=== PATIENT | male | born 1975 | race Caucasian/White ===

== ENCOUNTER 2018-06-22 00:12 | Emergency (ER) | payer OTHER ==
[2018-06-22 00:20] VITALS: BP 135/81; PULSE 93; RESP 18; TEMP 98.2
--- NOTE | 2018-06-22 00:35 | ED ---
Recheck HPI - General Chief Complaint: Recheck/Abnormal Lab/Rx Stated Complaint: infection Time Seen by Provider: 06/22/18 00:25 Source: patient Mode of arrival: ambulatory Limitations: no limitations - History of Present Illness Initial Comments: 42-year-old male past medical history of MRSA infection presenting today for chief complaint of nose redness. Patient states that he felt a pimple-like lesion inside of his nose near the tip 3 days ago. He states this happened following plucking with tweezers. Patient states that is tender to palpation. Patient states that the redness has spread from inside the nose to the outside, he was concerned for infection and presented for evaluation. Patient denies any fever, chills, night sweats, trauma to the nose. Patient denies general malaise. Remainder of ROS negative, patient denies any shortness of breath, chest pain, back pain, abdominal pain, nausea or vomiting, numbness or tingling , dysuria or hematuria, constipation or diarrhea, headaches or visual changes, or any other complaints. Upon arrival pt appears well, nontoxic. - Related Data Previous Rx's Medication Instructions Recorded Cephalexin [Keflex] 500 mg PO Q6HR #40 cap 01/09/14 Cephalexin [Keflex] 500 mg PO Q8HR 5 Days #15 cap 06/22/18 Sulfamethox-Tmp 800-160Mg [Bactrim 1 tab PO Q12HR 5 Days #10 tab 06/22/18 DS 800-160 mg] Allergies Allergy/AdvReac Type Severity Reaction Status Date / Time No Known Allergies Allergy Verified 06/22/18 00:20 Review of Systems ROS Statement: Those systems with pertinent positive or pertinent negative responses have been documented in the HPI. ROS Other: All systems not noted in ROS Statement are negative. Constitutional: Denies: fever, chills, night sweats ENT: Reports: as per HPI. Denies: ear pain, throat pain Respiratory: Denies: cough, dyspnea, wheezes, hemoptysis, stridor Cardiovascular: Denies: chest pain, palpitations Endocrine: Denies: fatigue Gastrointestinal: Denies: abdominal pain, nausea, vomiting, diarrhea, constipation Genitourinary: Denies: urgency, dysuria Musculoskeletal: Denies: back pain Skin: Denies: rash, lesions Neurological: Denies: headache, weakness, numbness, paresthesias, confusion Past Medical History Past Medical History: No Reported History Additional Past Medical History / Comment(s): high functioning autistic History of Any Multi-Drug Resistant Organisms: MRSA Date of last positivie culture/infection: 2006 MDRO Source:: nose Past Surgical History: No Surgical Hx Reported Past Psychological History: Anxiety, Depression, PTSD Smoking Status: Current every day smoker Past Alcohol Use History: Occasional Past Drug Use History: Marijuana General Exam - General Exam Comments Initial Comments: General: The patient is awake and alert, in no distress, and does not appear acutely ill. Eye: Pupils are equal, round and reactive to light, extra-ocular movements are intact. No nystagmus. There is normal conjunctiva bilaterally. No signs of icterus. Ears, nose, mouth and throat: There are moist mucous membranes and no oral lesions. Inspection of the nares revealed mild erythema, of the left internal tip. Small raised lesion internally palpated <1/2 cm. Mild soft tissue erythema of the nares. No facial erythema/swelling. Neck: The neck is supple, there is no tenderness or JVD. Cardiovascular: There is a regular rate and rhythm. No murmur, rub or gallop is appreciated. Respiratory: Lungs are clear to auscultation, respirations are non-labored, breath sounds are equal. No wheezes, stridor, rales, or rhonchi. Musculoskeletal: Normal ROM, no tenderness. Strength 5/5. Sensation intact. Pulses equal bilaterally 2+. Neurological: A&O x 3. CN II-XII intact, There are no obvious motor or sensory deficits. Coordination appears grossly intact. Speech is normal. Skin: Skin is warm and dry and no rashes or lesions are noted. Psychiatric: Cooperative, appropriate mood & affect, normal judgment. Limitations: no limitations Course Vital Signs 06/22/18 00:15 Temperature 98.2 F Pulse Rate 93 Respiratory 18 Rate Blood Pressure 135/81 O2 Sat by Pulse 96 Oximetry Medical Decision Making - Medical Decision Making 42yo immune competent male with no comorbidities, and hx of MRSA skin infection. PE concerning for folliculitis of nares (left) and beginning of surrounding cellulitis. Given the hx of MRSA, pt will be treated with keflex and bactrim. Pt is to f/u with primary in next 2 days. Pt is to return for worsening symptoms. No signs of systemic spread of infection at this time. Patient is agreeable plan. Case discussed with Dr. Mast who agreed with impression and plan. Pt discharged in stable condition after discussing return parameters at length. Patient verbalized understanding. Patient denied questions at this time. Patient appears happy with plan and discharge. Disposition Clinical Impression: Folliculitis Disposition: HOME SELF-CARE Condition: Good Instructions: Folliculitis (ED) Additional Instructions: Please use medication as discussed. Please follow-up with family doctor in the next 2 days. Please return to emergency room if the symptoms increase or worsen or for any other concerns. Prescriptions: Cephalexin [Keflex] 500 mg PO Q8HR 5 Days #15 cap Sulfamethox-Tmp 800-160Mg [Bactrim DS 800-160 mg] 1 tab PO Q12HR 5 Days #10 tab Is patient prescribed a controlled substance at d/c from ED?: No Referrals: Emmy Ghosh MD [Primary Care Provider] - 1-2 days Time of Disposition: 00:39
== END 2018-06-22 00:47 | disposition home or self-care (01) ==
LOC: EC 00:12
DX: L73.9 Follicular disorder, unspecified (principal); F84.0 Autistic disorder; F17.200 Nicotine dependence, unspecified, uncomplicated; Z86.14 Personal history of Methicillin resistant Staphylococcus aureus infection
CPT/HCPCS: 99282

== ENCOUNTER 2018-06-27 21:27 | Emergency (ER) | payer OTHER ==
[2018-06-27 21:38] VITALS: RESP 18
--- NOTE | 2018-06-27 22:14 | ED ---
General Adult HPI - General Chief complaint: Skin/Abscess/Foreign Body Stated complaint: RASH Time Seen by Provider: 06/27/18 21:41 Source: patient, RN notes reviewed Mode of arrival: ambulatory Limitations: no limitations - History of Present Illness Initial comments: Chief complaint and history of present illness a 42-year-old male here with a complaint of a rash on his penis. The patient states it happened approximately 3 days ago. He thinks he may have caused irritation from the ring on his right hand. He has no other explanation. On placing topical [id number] antibiotics on the area without improvement. - Related Data Previous Rx's Medication Instructions Recorded Cephalexin [Keflex] 500 mg PO Q6HR #40 cap 01/09/14 Cephalexin [Keflex] 500 mg PO Q8HR 5 Days #15 cap 06/22/18 Sulfamethox-Tmp 800-160Mg [Bactrim 1 tab PO Q12HR 5 Days #10 tab 06/22/18 DS 800-160 mg] Mupirocin 2% Oint [Bactroban 2% 1 applic TOPICAL TID #22 gm 06/27/18 Oint] Allergies Allergy/AdvReac Type Severity Reaction Status Date / Time No Known Allergies Allergy Verified 06/27/18 21:38 Review of Systems ROS Statement: Those systems with pertinent positive or pertinent negative responses have been documented in the HPI. Review of systems no other complaints at this time. Past medical problems negative. Surgeries none. Family history a grandmother and aunt was had breast cancer. The patient denies any ALLERGIES. Patient does smoke encouraged to stop his alcohol rarely socially. ROS Other: All systems not noted in ROS Statement are negative. Past Medical History Past Medical History: No Reported History Additional Past Medical History / Comment(s): high functioning autistic History of Any Multi-Drug Resistant Organisms: MRSA Date of last positivie culture/infection: 2006 MDRO Source:: nose Past Surgical History: No Surgical Hx Reported Past Psychological History: Anxiety, Depression, PTSD Smoking Status: Current every day smoker Past Alcohol Use History: Occasional Past Drug Use History: Marijuana General Exam - General Exam Comments Initial Comments: Physical examination; pertinent to the patient's visit eyes are PERRLA, throat is clear. No infection on his nose which she admits had had on previous visit. He is currently taking Keflex and sulfa medication. No chest pain shortness breath GI problems genitourinary problems as noted above examination of the penis finds patient circumcised. With excoriation to the glans penis. No typical rash such as herpetic lesion but rather it appears to have a chemical-type irritation. Patient denies any topical chemicals. The plan the patient will have Bactroban ointment prescribed which she is to use 3 times daily. If he does not have steady improvement is to follow-up with urology within the next 2-3 days. Limitations: no limitations Course Vital Signs 06/27/18 21:33 Temperature 98.5 F Pulse Rate 119 H Respiratory 18 Rate Blood Pressure 109/68 O2 Sat by Pulse 98 Oximetry Medical Decision Making - Medical Decision Making Medical decision making; patient presents with surface irritation to the glans penis. Patient thinks he may have inadvertently caused damage from his ring. On emergency room the patient had Bactroban prescribed. He was advised how to apply it, however often and what to do of the skin does not start to heal. Disposition Clinical Impression: Penis abrasion Disposition: HOME SELF-CARE Condition: Fair Instructions: Abrasion (ED) Additional Instructions: Clean as directed, apply Bactroban 3 times daily. If not steadily improving follow-up with your family doctor and/or on-call urologist. Prescriptions: Mupirocin 2% Oint [Bactroban 2% Oint] 1 applic TOPICAL TID #22 gm Is patient prescribed a controlled substance at d/c from ED?: No Referrals: Emmy Ghosh MD [Primary Care Provider] - 1-2 days Time of Disposition: 22:13
[2018-06-27] MEDS ORDERED: MUPIROCIN 2% OINT 22 GM TUBE TOPICAL SCH (22:15)
[2018-06-27 22:53] VITALS: BP 110/70; PULSE 95; TEMP 98.2
== END 2018-06-27 22:55 | disposition home or self-care (01) ==
LOC: EC 21:27 → EEVIPCON 21:27 → EC 22:55
DX: S30.812A Abrasion of penis, initial encounter (principal); F17.200 Nicotine dependence, unspecified, uncomplicated; Z86.14 Personal history of Methicillin resistant Staphylococcus aureus infection; X58.XXXA Exposure to other specified factors, initial encounter
CPT/HCPCS: 99282

== ENCOUNTER 2020-09-22 12:14 | Inpatient (IN) | payer MEDICAID, OTHER ==
--- NOTE | 2020-09-22 13:08 | ED ---
General Adult HPI - General Source: patient, police, RN notes reviewed, old records reviewed Mode of arrival: EMS Limitations: no limitations <Kayden Amaro - Last Filed: 09/22/20 13:52> <Kayden Merritt - Last Filed: 09/22/20 17:20> - General Chief complaint: Psychiatric Symptoms Stated complaint: Mental health Time Seen by Provider: 09/22/20 12:17 - History of Present Illness Initial comments: 45-year-old male presenting for psychiatric evaluation. Patient brought in by local [employer] under court order psychiatric evaluation. Patient has been paranoid. He himself has no complaints, no physical complaints, denies suicidal or homicidal ideation. Denies illicit drugs. Uncertain if this patient is cu rrently on medication or has previously had a diagnosis of mental illness. (Kayden Amaro) - Related Data Home Medications Medication Instructions Recorded Confirmed No Known Home Medications 09/22/20 09/22/20 Allergies Allergy/AdvReac Type Severity Reaction Status Date / Time No Known Allergies Allergy Verified 09/22/20 13:17 Review of Systems ROS Other: All systems not noted in ROS Statement are negative. <Kayden Amaro - Last Filed: 09/22/20 13:52> ROS Other: All systems not noted in ROS Statement are negative. <Kayden Merritt - Last Filed: 09/22/20 17:20> ROS Statement: Those systems with pertinent positive or pertinent negative responses have been documented in the HPI. Past Medical History Past Medical History: No Reported History Additional Past Medical History / Comment(s): high functioning autistic History of Any Multi-Drug Resistant Organisms: MRSA Date of last positivie culture/infection: 2006 MDRO Source:: nose Past Surgical History: No Surgical Hx Reported Past Psychological History: Anxiety, Depression, PTSD Smoking Status: Current every day smoker Past Alcohol Use History: Occasional Past Drug Use History: Marijuana <Kayden Amaro - Last Filed: 09/22/20 13:52> General Exam Limitations: no limitations General appearance: alert, in no apparent distress Head exam: Present: atraumatic, normocephalic Eye exam: Present: normal appearance, PERRL ENT exam: Present: normal exam Neck exam: Present: normal inspection. Absent: tenderness Respiratory exam: Present: normal lung sounds bilaterally, respiratory distress Cardiovascular Exam: Present: regular rate, normal rhythm GI/Abdominal exam: Present: soft. Absent: distended, tenderness, guarding Extremities exam: Present: normal inspection, normal capillary refill. Absent: pedal edema Back exam: Present: normal inspection, full ROM Neurological exam: Present: alert. Absent: motor sensory deficit Psychiatric exam: Present: agitated, anxious Skin exam: Present: warm, dry, intact <Kayden Amaro - Last Filed: 09/22/20 13:52> Course <Kayden Amaro - Last Filed: 09/22/20 13:52> <Kayden Merritt - Last Filed: 09/22/20 17:20> Vital Signs 09/22/20 12:19 Temperature 98.2 F Pulse Rate 102 H Respiratory 22 Rate Blood Pressure 143/100 O2 Sat by Pulse 98 Oximetry - Reevaluation(s) Reevaluation #1: 09/22/20 1500 Patient cleared for EPS evaluation, care is signed out to Dr. Merritt at shift change awaiting EPS disposition. (Kayden Amaro) Reevaluation #2: 09/22/20 17:19 Patient was demonstrating aggressive behavior and did require sedation. (Kayden Merritt) Medical Decision Making <Kayden Merritt - Last Filed: 09/22/20 17:20> - Medical Decision Making The patient was endorsed me at shift change pending completion of the EPS evaluation. Patient did present on petition for paranoid and delusional behavior he apparently has been using the Internet for Cipro Prolene in her aspirin today. Patient did require a clinical certification was filled out by me. (Kayden Merritt) - Lab Data Lab Results 09/22/20 Range/Units 14:08 Urine Opiates Screen Not Detected (NotDetected) Ur Oxycodone Screen Not Detected (NotDetected) Urine Methadone Screen Not Detected (NotDetected) Ur Propoxyphene Screen Not Detected (NotDetected) Ur Barbiturates Screen Not Detected (NotDetected) U Tricyclic Antidepress Not Detected (NotDetected) Ur Phencyclidine Scrn Not Detected (NotDetected) Ur Amphetamines Screen Not Detected (NotDetected) U Methamphetamines Scrn Not Detected (NotDetected) U Benzodiazepines Scrn Not Detected (NotDetected) Urine Cocaine Screen Not Detected (NotDetected) U Marijuana (THC) Screen Detected H (NotDetected) Disposition <Kayden Amaro - Last Filed: 09/22/20 13:52> <Kayden Merritt - Last Filed: 09/22/20 17:20> Clinical Impression: Acute psychosis Disposition: TRANSFER TO PSYCH HOSP/UNIT Condition: Fair Referrals: Emmy Ghosh MD [Primary Care Provider] - 1-2 days
[2020-09-22 15:15] LABS: Amphetamine Screen,Urine Not Detected (NotDetected); Barbiturate Screen,Urine Not Detected (NotDetected); Benzodiazepines Screen,Urine Not Detected (NotDetected); Cocaine Screen,Urine Not Detected (NotDetected); Methadone Screen, Urine Not Detected (NotDetected); Opiate Screen,Urine Not Detected (NotDetected); Oxycodone Screen, Urine Not Detected (NotDetected); Phencyclidine Screen,Urine Not Detected (NotDetected); Tricyclic Antidepressant,Urine Not Detected (NotDetected); Urn Cannabinoid Scrn Detected (NotDetected)
[2020-09-22] MEDS ORDERED: HALOPERIDOL LACTATE 5 MG/ML 1 ML VIAL IM STA (16:38)
[2020-09-22] MEDS ORDERED: LORazepam 2 MG/ML INJ IM STA (16:38)
[2020-09-22] MEDS ORDERED: MAGNESIUM HYDROXIDE 2,400 MG/10 ML CUP PO PRN (19:20)
[2020-09-22] MEDS ORDERED: MAG HYDROX/AL HYDROX/SIMETH 30 ML CUP PO PRN (19:20)
[2020-09-22] MEDS ORDERED: ACETAMINOPHEN TAB 325 MG TAB PO PRN (19:20)
[2020-09-22] MEDS ORDERED: LORazepam 2 MG/ML INJ IM PRN (19:27)
[2020-09-22] MEDS ORDERED: HALOPERIDOL LACTATE 5 MG/ML 1 ML VIAL IM PRN (19:28)
[2020-09-22] MEDS: chlorproMAZINE 25 MG TAB PO SCH (22:10)
[2020-09-23] MEDS: chlorproMAZINE 25 MG TAB PO SCH ×4 (08:31→21:30)
[2020-09-23] MEDS: NICOTINE POLACRILEX 2 MG GUM BUCCAL PRN (08:35)
[2020-09-23 10:03] LABS: Basophils # (A) 0.1 k/uL (0-0.2); Basophils % (A) 1 %; Eosinophils # (A) 0.2 k/uL (0-0.7); Eosinophils % (A) 3 %; HCT 43.1 % (39.0-53.0); HGB 14.1 gm/dL (13.0-17.5); Lymphocytes # (A) 3.6 k/uL (1.0-4.8); Lymphocytes % (A) 42 %; MCH 30.6 pg (25.0-35.0); MCHC 32.9 g/dL (31.0-37.0); MCV 93.1 fL (80.0-100.0); Mean Platelet Volume 6.6; Monocytes # (A) 0.4 k/uL (0-1.0); Monocytes % (A) 5 %; Neutrophils # (A) 4.2 k/uL (1.3-7.7); Neutrophils % (A) 49 %; Platelet Count 536 k/uL (150-450); RBC 4.62 m/uL (4.30-5.90); RDW 13.1 % (11.5-15.5); WBC 8.6 k/uL (3.8-10.6)
[2020-09-23 10:30] LABS: ALT 16 U/L (4-49); AST 34 U/L (17-59); African American GFR (CKD) >90 (>60 ml/min/1.73 sqM); Albumin 4.6 g/dL (3.5-5.0); Alkaline Phosphatase 69 U/L (38-126); Anion Gap 9 mmol/L; Blood Urea Nitrogen 11 mg/dL (9-20); Calcium 10.1 mg/dL (8.4-10.2); Carbon Dioxide 25 mmol/L (22-30); Chloride 105 mmol/L (98-107); Cholesterol 267 mg/dL (<200); Glucose 102 mg/dL (74-99); HDL Cholesterol 38 mg/dL (40-60); LDL Cholesterol,Calculated 193 mg/dL (0-99); Non-African American GFR(CKD) >90 (>60 ml/min/1.73 sqM); Potassium 4.8 mmol/L (3.5-5.1); Sodium 139 mmol/L (137-145); Total Bilirubin 0.4 mg/dL (0.2-1.3); Total Protein 7.4 g/dL (6.3-8.2); Triglycerides 180 mg/dL (<150)
[2020-09-23] MEDS: LORazepam 1 MG TAB PO PRN ×2 (12:43→18:58)
--- NOTE | 2020-09-23 15:02 | P.HP ---
Psychiatric H&P - . H&P Date: 09/23/20 History & Physical: Allergies Allergy/AdvReac Type Severity Reaction Status Date / Time No Known Allergies Allergy Verified 09/22/20 13:17 Vital Signs Temp 97.7 F 09/23/20 06:05 Pulse 61 09/23/20 06:05 Resp 18 09/22/20 20:08 BP 111/58 09/23/20 06:05 Pulse Ox 98 09/22/20 19:13 Intake & Output 09/22/20 09/23/20 09/23/20 18:59 06:59 18:59 Weight 70.307 kg 77 kg Laboratory Last Values WBC 8.6 k/uL (3.8-10.6) 09/23/20 09:43 RBC 4.62 m/uL (4.30-5.90) 09/23/20 09:43 Hgb 14.1 gm/dL (13.0-17.5) 09/23/20 09:43 Hct 43.1 % (39.0-53.0) 09/23/20 09:43 MCV 93.1 fL (80.0-100.0) 09/23/20 09:43 MCH 30.6 pg (25.0-35.0) 09/23/20 09:43 MCHC 32.9 g/dL (31.0-37.0) 09/23/20 09:43 RDW 13.1 % (11.5-15.5) 09/23/20 09:43 Plt Count 536 k/uL (150-450) H 09/23/20 09:43 MPV 6.6 09/23/20 09:43 Neutrophils % 49 % 09/23/20 09:43 Lymphocytes % 42 % 09/23/20 09:43 Monocytes % 5 % 09/23/20 09:43 Eosinophils % 3 % 09/23/20 09:43 Basophils % 1 % 09/23/20 09:43 Neutrophils # 4.2 k/uL (1.3-7.7) 09/23/20 09:43 Lymphocytes # 3.6 k/uL (1.0-4.8) 09/23/20 09:43 Monocytes # 0.4 k/uL (0-1.0) 09/23/20 09:43 Eosinophils # 0.2 k/uL (0-0.7) 09/23/20 09:43 Basophils # 0.1 k/uL (0-0.2) 09/23/20 09:43 Sodium 139 mmol/L (137-145) 09/23/20 09:43 Potassium 4.8 mmol/L (3.5-5.1) 09/23/20 09:43 Chloride 105 mmol/L (98-107) 09/23/20 09:43 Carbon Dioxide 25 mmol/L (22-30) 09/23/20 09:43 Anion Gap 9 mmol/L 09/23/20 09:43 BUN 11 mg/dL (9-20) 09/23/20 09:43 Creatinine 0.83 mg/dL (0.66-1.25) 09/23/20 09:43 Est GFR (CKD-EPI)AfAm >90 (>60 ml/min/1.73 sqM) 09/23/20 09:43 Est GFR (CKD-EPI)NonAf >90 (>60 ml/min/1.73 sqM) 09/23/20 09:43 Glucose 102 mg/dL (74-99) H 09/23/20 09:43 Calcium 10.1 mg/dL (8.4-10.2) 09/23/20 09:43 Total Bilirubin 0.4 mg/dL (0.2-1.3) 09/23/20 09:43 AST 34 U/L (17-59) 09/23/20 09:43 ALT 16 U/L (4-49) 09/23/20 09:43 Alkaline Phosphatase 69 U/L (38-126) 09/23/20 09:43 Total Protein 7.4 g/dL (6.3-8.2) 09/23/20 09:43 Albumin 4.6 g/dL (3.5-5.0) 09/23/20 09:43 Triglycerides 180 mg/dL (<150) H 09/23/20 09:43 Cholesterol 267 mg/dL (<200) H 09/23/20 09:43 LDL Cholesterol, Calc 193 mg/dL (0-99) H 09/23/20 09:43 HDL Cholesterol 38 mg/dL (40-60) L 09/23/20 09:43 TSH 2.600 mIU/L (0.465-4.680) 09/23/20 09:43 Urine Opiates Screen Not Detected (NotDetected) 09/22/20 14:08 Ur Oxycodone Screen Not Detected (NotDetected) 09/22/20 14:08 Urine Methadone Screen Not Detected (NotDetected) 09/22/20 14:08 Ur Propoxyphene Screen Not Detected (NotDetected) 09/22/20 14:08 Ur Barbiturates Screen Not Detected (NotDetected) 09/22/20 14:08 U Tricyclic Antidepress Not Detected (NotDetected) 09/22/20 14:08 Ur Phencyclidine Scrn Not Detected (NotDetected) 09/22/20 14:08 Ur Amphetamines Screen Not Detected (NotDetected) 09/22/20 14:08 U Methamphetamines Scrn Not Detected (NotDetected) 09/22/20 14:08 U Benzodiazepines Scrn Not Detected (NotDetected) 09/22/20 14:08 Urine Cocaine Screen Not Detected (NotDetected) 09/22/20 14:08 U Marijuana (THC) Screen Detected (NotDetected) H 09/22/20 14:08 Coronavirus (PCR) Not Detected (Not Detectd) 09/22/20 18:33 09/23/20 14:45 Chief complaint: Patient stated he has autistic and was sleeping yesterday when police and public guardian came and woke him up and he was brought to the emergency room. History of present illness: Patient stated that he goes through his meltdowns just like any other person with autism . He stated when he has a meltdown he gets upset, starts pacing, and keeps going on and on about the subject and does not listen to others. He stated when he has a meltdown and if he is confronted by somebody it makes him worse. He stated that his mother was at home and he has a awakened by police officers and was brought to the emergency room. Past history: he stated he was never in the hospital but when he was 16 years old he was admitted to [facility] one time. Family history he stated he has mother, father and 2 of his brothers. He denies any history of mental illness, suicidal ideation or homicidal ideation or history of psychiatric hospitalizations in the family. Medical history: He denies any medical problems and denies being on any other medications. Social history he stated he grew up with his mother and father. He finished high school. He stated he has some college education. 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 He stated he cannot hold a steady job because of his autism. Medication history: he stated he takes PRN Ativan, Xanax when his anxiety becomes real bad. He stated his mother also has anxiety and takes medication on a regular basis. Substance abuse history: he denied any history of alcohol and drugs are any other substance abuse at all. Legal history: he denied having any legal problems. The mother is not his legal guardian. ALLERGIES: he denies any ALLERGIES or any adverse drug reactions. Mental status examination: This patient is alert and oriented to time place and person. His appearance is a not neat and he is disheveled. His behavior is cooperative. When asked to describe his mood he stated he feels confused and little upset. His affect is blank. He denied having any hallucinations or delusions at this time. He does not have any loose associations or flight of high ideas or any other disorder of thought process. He was able to do similarities and differences between common objects. His formal judgment is a fair marked functional judgment is poor. His impulse control is poor and he is quite unpredictable. He was not able to interpret any proverbs. His memory functions are intact. 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
[2020-09-23] MEDS: ATORVASTATIN 40 MG TAB PO SCH (21:30)
--- NOTE | 2020-09-23 23:33 | P.MDCNMH ---
History of Present Illness H&P Date: 09/23/20 Chief Complaint: Paranoid ideation Patient is a 45-year-old male with a known history of high functioning autism, anxiety/depression, PTSD and everyday smoker and occasional marijuana use was brought to hospital by a local whistle punk under court order for psychiatric evaluation. Patient has been paranoid and compliant that someone is cyber bullying him. Patient states that police misunderstood him and thinks that he himself was cyber bullied. Otherwise patient denied any complaints of chest pain or shortness of breath. No fever no chills. Denied any recent illnesses. No suicidal or homicidal ideation. Denied any IV drug use. Patient does use marijuana occasionally. Patient is currently not on any medications at home. Laboratory data showed BUN 11, creatinine 0.83, AST 34 ALT 16 and alk phos 69 triglycerides 180 cholesterol 267 and LDL 193 and TSH level is 2.6 UDS is positive for marijuana COVID-19 PCR is negative. Review of Systems Constitutional: Patient denies any fever or chills . No generalized weakness or weight loss. Abdomen: Patient denied nausea vomiting and diarrhea and abdominal pain. Cardiovascular: Patient denies any chest pain or short of breath no palpitations. Respiratory: patient denied any cough or sputum production. No shortness of breath Neurologic: Patient denied any numbness or tingling headache. Musculoskeletal: Patient denies any complaints of joint swelling or deformity. Skin: Negative Psychiatric: Negative Endocrine: No heat or cold intolerance. No recent weight gain. Genitourinary: No dysuria or hematuria. All other 14 point ROS negative except the above Past Medical History Past Medical History: No Reported History Additional Past Medical History / Comment(s): high functioning autistic History of Any Multi-Drug Resistant Organisms: MRSA Date of last positivie culture/infection: 2006 MDRO Source:: nose Past Surgical History: No Surgical Hx Reported Past Anesthesia/Blood Transfusion Reactions: No Reported Reaction Past Psychological History: Anxiety, Depression, PTSD Smoking Status: Current every day smoker Past Alcohol Use History: None Reported, Occasional Past Drug Use History: Marijuana Medications and Allergies Home Medications Medication Instructions Recorded Confirmed Type No Known Home Medications 09/22/20 09/22/20 History Allergies Allergy/AdvReac Type Severity Reaction Status Date / Time No Known Allergies Allergy Verified 09/22/20 13:17 Physical Exam Vitals: Vital Signs Temp Pulse Pulse Resp BP BP Pulse Ox 09/23/20 06:05 97.7 F 61 111/58 09/22/20 20:08 88 18 113/73 09/22/20 19:13 98.2 F 77 20 116/60 98 09/22/20 18:30 105 H 20 165/90 99 09/22/20 17:22 98.1 F 118 H 20 166/107 95 09/22/20 12:19 98.2 F 102 H 22 143/100 98 Intake and Output 09/22/20 09/23/20 09/23/20 22:59 06:59 14:59 Other: Weight 77 kg PHYSICAL EXAMINATION: Patient is lying in the bed comfortably, no acute distress, awake alert and oriented.. HEENT: Normocephalic. Neck is supple. Pupils reactive. Nostrils clear. Oral cavity is moist. Ears reveal no drainage. Neck reveals no JVD, carotid bruits, or thyromegaly. CHEST EXAMINATION: Trachea is central. Symmetrical expansion. Lung dhaliwal clear to auscultation and percussion. CARDIAC: Normal S1, S2 with no gallops. No murmurs ABDOMEN: Soft. Bowel sounds normal. No organomegaly. No abdominal bruits. Extremities: reveal no edema. No clubbing or cyanosis Neurologically awake, alert, oriented x3 with well-coordinated movements. No focal deficits noted Skin: No rash or skin lesions. Psychiatric: Coperative. Nonsuicidal Musculoskeletal: No joint swelling or deformity. Normal range of motion. Cranial Nerve Examination - Cranial Nerves Cranial Nerve I- Olfactory: Intact Cranial Nerve II- Optic: Intact Cranial Nerve III- Oculomotor: Intact Cranial Nerve IV- Trochlear: Intact Cranial Nerve V- Trigeminal: Intact Cranial Nerve - Abducens: Intact Cranial Nerve VII- Facial: Intact Cranial Nerve VIII- Auditory: Intact Cranial Nerve IX- Glossopharyngeal: Intact Cranial Nerve X- Vagus: Intact Cranial Nerve XI- Accessory: Intact Cranial Nerve XII- Hypoglossal: Intact Results CBC & Chem 7: 09/23/20 09:43 09/23/20 09:43 Labs: Abnormal Lab Results - Last 24 Hours (Table) 09/22/20 09/23/20 09/23/20 Range/Units 14:08 09:43 09:43 Plt Count 536 H (150-450) k/uL Glucose 102 H (74-99) mg/dL Triglycerides 180 H (<150) mg/dL Cholesterol 267 H (<200) mg/dL LDL Cholesterol, Calc 193 H (0-99) mg/dL HDL Cholesterol 38 L (40-60) mg/dL U Marijuana (THC) Screen Detected H (NotDetected) Assessment and Plan Assessment: Acute paranoid ideation/schizo failure. Hyperlipidemia UDS is positive for marijuana use Currently everyday smoker Anxiety/depression and PTSD history High functioning autism history DVT prophylaxis with early ambulation Plan: Patient be continued on current psychiatric medications. will start on atorvastatin due to hyperlipidemia. Liver enzymes are not elevated at this time. We will continue to follow and further recommendations based on the clinical c ourse. Patient was counseled extensively for smoking cessation and marijuana use.
[2020-09-24] MEDS: chlorproMAZINE 25 MG TAB PO SCH ×4 (08:57→23:36)
[2020-09-24] MEDS: NICOTINE POLACRILEX 2 MG GUM BUCCAL PRN (09:11)
--- NOTE | 2020-09-24 13:14 | P.PN ---
Progress Note - Text Progress Note Date: 09/24/20 This patient has a history of autism and has a very limited comprehension. He stated that he had one of his meltdowns. He stated when he has a meltdown he gets upset, starts pacing, and keeps going on and on about the subject and does not listen to others. He stated when he has a meltdown and if he is confronted by somebody it makes him worse. He stated that his mother was at home and he has a awakened by police officers and was brought to the emergency room. He did not sign himself in voluntarily. He was very angry with me today about the clinical certification that I completed on him. I tried to help him again about the involuntary process on admission to hospital. He will continue to be encouraged to participate in unit activities.
[2020-09-24] MEDS: ATORVASTATIN 40 MG TAB PO SCH (20:50)
[2020-09-25] MEDS: LORazepam 1 MG TAB PO PRN (00:36)
[2020-09-25] MEDS: chlorproMAZINE 25 MG TAB PO SCH (08:01)
[2020-09-25] MEDS: NICOTINE POLACRILEX 2 MG GUM BUCCAL PRN (12:16)
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
[2020-09-25] MEDS: ATORVASTATIN 40 MG TAB PO SCH (20:00)
[2020-09-25] MEDS ORDERED: PALIPERIDONE 3 MG TAB.ER.24 PO SCH (21:00)
[2020-09-26] MEDS: LORazepam 1 MG TAB PO PRN (01:16)
--- NOTE | 2020-09-26 10:13 | P.PN ---
Progress Note - Text Progress Note Date: 09/26/20 Interval History: Patient was seen wandering the hallways and was directable and agreeable to speak with rewriter in the office. The patient reports that he is feeling well today. The patient states that he deferred today. He is not reporting any suicidal or homicidal ideation, intention, and/or plan today. He is not reporting any auditory or visual hallucinations. Denying any paranoia or other delusions. He reports that the only delusion that he is being accused of is his desire to change his name. He continues to report that people have been slandering him on Facebook and collateral information provided by the patient's mother further supports this history. He is been adherent with his medications and is not reporting any significant side effects at this time. He is open to following up in the outpatient setting. Mental Status Exam: General Appearance: Patient appears to be stated age is alert, directable, and cooperative. Poor dentition. Tall and thin build. Behavior: Patient is calmly seated without any agitated behavior. Psychomotor activity appears normal. Eye contact is appropriate. Speech: Patient's speech is fluent and nonpressured. Soft spoken but spontaneous. Mood/Affect: Mood is improving mildly, affect is congruent and constricted. Suicidality/Homicidality: Patient denies having any suicidal or homicidal ideation intent or plan. Perceptions: Patient denies any visual hallucinations and denies any auditory hallucinations Though content/process: There is no evidence of any delusional thought content and thought process is linear and goal-directed. Memory and concentration: AOX3, grossly intact for the purposes of this session Judgment and insight: Improving mildly Assessment Psychosis, unspecified Cannabis Use Disorder Plan: -Patient continues to meet criteria for inpatient psychiatric admission for symptom stabilization and safety. Petition and clinical certificate has been filled out. Patient deferred today. -Medications: Increase Invega to 6 mg at bedtime for mood stabilization/psychosis. -When necessary Ativan and Geodon for agitation/aggression. -NRT - nicotine patch and Nicorette gum -SW on board for discharge planning. Encouraged the patient to participate in milieu.
[2020-09-26] MEDS: ATORVASTATIN 40 MG TAB PO SCH (20:50)
[2020-09-26] MEDS ORDERED: PALIPERIDONE 6 MG TAB.ER.24 PO SCH (21:00)
[2020-09-27 06:43] VITALS: BP 108/57; PULSE 64; RESP 16; TEMP 97.3
--- NOTE | 2020-09-27 09:33 | P.DS ---
Providers Date of admission: 09/22/20 19:15 Expected date of discharge: 09/27/20 Attending physician: René Rodas MD Consults: 09/22/20 19:20 Consult Physician Routine Consulting Provider: Ifeanyi Arzola Consult Reason/Comments: medical management Do you want consulting provider notified?: Yes Primary care physician: Augie Finn Charbal - Discharge Diagnosis(es) (1) Unspecified psychosis Current Visit: Yes Status: Acute Priority: High (2) Cannabis abuse Current Visit: Yes Status: Chronic Priority: Medium (3) Nicotine dependence Current Visit: Yes Status: Chronic Priority: Medium Hospital Course: Admission HPI: Initial psychiatric evaluation was completed by Dr. Tran on 09/23/2020 who wrote: "Patient stated he has autistic and was sleeping yesterday when police and public guardian came and woke him up and he was brought to the emergency room. Patient stated that he goes through his meltdowns just like any other person with autism . He stated when he has a meltdown he gets upset, starts pacing, and keeps going on and on about the subject and does not listen to others. He stated when he has a meltdown and if he is confronted by somebody it makes him worse. He stated that his mother was at home and he has a awakened by police o fficers and was brought to the emergency room." Hospital course: Upon admission to the unit patient was initially presented as disheveled but otherwise cooperative, well behaved, albeit with a blank affect. Second clinical certificate was filled out by Dr. Tran and the patient was very upset at this. He was started on a regimen of Thorazine 50 mg by mouth 4 times a day. Upon reevaluation the following Friday, the patient was calm and cooperative and not endorsing any significant symptoms of psychosis. Thorazine was discontinued and the patient was started on a regimen of Invega. The patient participated in both individual and group therapies. He is evaluated by the medical team for history and physical exam. Collateral information was provided by the patient's mother who confirmed that the patient has been subject to harassment over Facebook due to his history of incarceration and his registration as a sex offender. The patient has been calm and cooperative with staff and peers on this unit. He has been adherent with his medications. On the day of discharge, the patient is not reporting any suicidal or homicidal ideation, intention, and/or plan. He is not reporting any auditory or visual hallucinations. He is denying any paranoia or other delusions. He denies any thought insertion, projection, thought deletion, delusions and surveillance, per secutory delusions, or other delusions. The patient does have a significant history of substance abuse however was counseled on abstaining from all substances including alcohol and marijuana. The patient denied any access to firearms or other weapons. Patient was counseled on the medications and need for regular compliance was encouraged to follow-up with his outpatient appointments for mental health and for primary care. Prior to discharge, family meeting will be arranged by social media analyst to answer any questions and ensure safety. Mental status exam: General Appearance: Patient appears to be stated age is alert, pleasant, and cooperative. Patient is in no acute distress and has fair hygiene and grooming. Poor dentition. Tall and thin build. Behavior: Patient is calmly seated without any agitated behavior. Normal psychomotor activity. Eye contact is appropriate. Speech: Patient's speech is fluent and nonpressured. Mood/Affect: Patient reports their mood is "feeling fine", affect is congruent and euthymic. Suicidality/Homicidality: Patient denies having any suicidal or homicidal ideation intent or plan. Perceptions: Patient denies any auditory or visual hallucinations. Though content/process: There is no evidence of any delusional thought content and thought process is linear and goal-directed. Patient is future oriented. Memory and concentration: AOX3, grossly intact for the purposes of this session. Can spell "WORLD" backwards correctly. Judgment and insight: Improved with guarded prognosis Impression: Unspecified psychosis Cannabis abuse Nicotine dependence Plan: -Continue with discharge today as patient has improved and stabilized psychiatrically and is not currently an imminent threat to himself and/or others. Patient will remain at chronically elevated risk for harm to self and/or others due to his polysubstance abuse. -Continue medications: Invega 6 mg by mouth at bedtime for mood stabilization/psychosis Nicorette gum for tobacco cessation. -Patient was counseled on the need for medication compliance and appropriate follow-up at mental health and also primary care for medical issues. Patient verbalized understanding and agreed. -Social work to arrange for and conduct family meeting to ensure safety upon discharge and answer any questions/concerns. Social work also to arrange for patients follow up appointments with [facility] for psychiatric care along with follow up with primary care provider. -Patient counseled on abstaining from recreational drugs and marijuana and alcohol. Was informed/educated on the adverse effects on their physical and mental health. Patient verbally agreed and understood. -Patient was instructed to return to the hospital or seek immediate medical care if their psychiatric or medical symptoms do worsen or reoccur. -Psychoeducation and supportive therapy provided to patient. Risks and benefits of pharmacological treatment versus the risks and benefits of nontreatment weight and discussed. Informed consent discussion held. Common side effects of psychotropics discussed such as, but not limited to headache, GI disturbance, sexual dysfunction, movement disorders, sedation, and orthostatic hypotension. Life threatening and blackbox warnings of prescribed medications also discussed. Potential risks of operating a vehicle or heavy machinery discussed with patient at length. Advised on importance of compliance and a reliable and responsible manner. Patient advised to review FDA consumer labeling of all medications prior to taking. Patient verbalized understanding of potential risks, and agrees with current treatment plan. Patient advised to medically contact physician/emergency personnel if any acute changes in condition occur. Vital Signs Temp 97.3 F L 09/27/20 06:25 Pulse 64 09/27/20 06:25 Resp 16 09/27/20 06:25 BP 108/57 09/27/20 06:25 Pulse Ox 98 09/22/20 19:13 Laboratory Results WBC 8.6 k/uL (3.8-10.6) 09/23/20 09:43 RBC 4.62 m/uL (4.30-5.90) 09/23/20 09:43 Hgb 14.1 gm/dL (13.0-17.5) 09/23/20 09:43 Hct 43.1 % (39.0-53.0) 09/23/20 09:43 MCV 93.1 fL (80.0-100.0) 09/23/20 09:43 MCH 30.6 pg (25.0-35.0) 09/23/20 09:43 MCHC 32.9 g/dL (31.0-37.0) 09/23/20 09:43 RDW 13.1 % (11.5-15.5) 09/23/20 09:43 Plt Count 536 k/uL (150-450) H 09/23/20 09:43 MPV 6.6 09/23/20 09:43 Neutrophils % 49 % 09/23/20 09:43 Lymphocytes % 42 % 09/23/20 09:43 Monocytes % 5 % 09/23/20 09:43 Eosinophils % 3 % 09/23/20 09:43 Basophils % 1 % 09/23/20 09:43 Neutrophils # 4.2 k/uL (1.3-7.7) 09/23/20 09:43 Lymphocytes # 3.6 k/uL (1.0-4.8) 09/23/20 09:43 Monocytes # 0.4 k/uL (0-1.0) 09/23/20 09:43 Eosinophils # 0.2 k/uL (0-0.7) 09/23/20 09:43 Basophils # 0.1 k/uL (0-0.2) 09/23/20 09:43 Sodium 139 mmol/L (137-145) 09/23/20 09:43 Potassium 4.8 mmol/L (3.5-5.1) 09/23/20 09:43 Chloride 105 mmol/L (98-107) 09/23/20 09:43 Carbon Dioxide 25 mmol/L (22-30) 09/23/20 09:43 Anion Gap 9 mmol/L 09/23/20 09:43 BUN 11 mg/dL (9-20) 09/23/20 09:43 Creatinine 0.83 mg/dL (0.66-1.25) 09/23/20 09:43 Est GFR (CKD-EPI)AfAm >90 (>60 ml/min/1.73 sqM) 09/23/20 09:43 Est GFR (CKD-EPI)NonAf >90 (>60 ml/min/1.73 sqM) 09/23/20 09:43 Glucose 102 mg/dL (74-99) H 09/23/20 09:43 Calcium 10.1 mg/dL (8.4-10.2) 09/23/20 09:43 Total Bilirubin 0.4 mg/dL (0.2-1.3) 09/23/20 09:43 AST 34 U/L (17-59) 09/23/20 09:43 ALT 16 U/L (4-49) 09/23/20 09:43 Alkaline Phosphatase 69 U/L (38-126) 09/23/20 09:43 Total Protein 7.4 g/dL (6.3-8.2) 09/23/20 09:43 Albumin 4.6 g/dL (3.5-5.0) 09/23/20 09:43 Triglycerides 180 mg/dL (<150) H 09/23/20 09:43 Cholesterol 267 mg/dL (<200) H 09/23/20 09:43 LDL Cholesterol, Calc 193 mg/dL (0-99) H 09/23/20 09:43 HDL Cholesterol 38 mg/dL (40-60) L 09/23/20 09:43 TSH 2.600 mIU/L (0.465-4.680) 09/23/20 09:43 Urine Opiates Screen Not Detected (NotDetected) 09/22/20 14:08 Ur Oxycodone Screen Not Detected (NotDetected) 09/22/20 14:08 Urine Methadone Screen Not Detected (NotDetected) 09/22/20 14:08 Ur Propoxyphene Screen Not Detected (NotDetected) 09/22/20 14:08 Ur Barbiturates Screen Not Detected (NotDetected) 09/22/20 14:08 U Tricyclic Antidepress Not Detected (NotDetected) 09/22/20 14:08 Ur Phencyclidine Scrn Not Detected (NotDetected) 09/22/20 14:08 Ur Amphetamines Screen Not Detected (NotDetected) 09/22/20 14:08 U Methamphetamines Scrn Not Detected (NotDetected) 09/22/20 14:08 U Benzodiazepines Scrn Not Detected (NotDetected) 09/22/20 14:08 Urine Cocaine Screen Not Detected (NotDetected) 09/22/20 14:08 U Marijuana (THC) Screen Detected (NotDetected) H 09/22/20 14:08 Coronavirus (PCR) Not Detected (Not Detectd) 09/22/20 18:33 Allergies Allergy/AdvReac Type Severity Reaction Status Date / Time No Known Allergies Allergy Verified 09/22/20 13:17 Patient Condition at Discharge: Stable Plan - Discharge Summary Discharge Rx Participant: No New Discharge Prescriptions: New Paliperidone [Invega] 6 mg PO HS 30 Days tab.er.24 Atorvastatin [Lipitor] 40 mg PO HS 30 Days tab Nicotine Polacrilex [Nicorette] 2 mg BUCCAL Q4HR PRN 30 Days gum PRN Reason: Nicotine Cravings Discharge Medication List Atorvastatin [Lipitor] 40 mg PO HS 30 Days tab 09/27/20 [Rx] Nicotine Polacrilex [Nicorette] 2 mg BUCCAL Q4HR PRN 30 Days gum 09/27/20 [Rx] Paliperidone [Invega] 6 mg PO HS 30 Days tab.er.24 09/27/20 [Rx] Follow up Appointment(s)/Referral(s): [facility] [Outside] - 10/02/20 9:00 am (10/02/20 at 9 am with Nohelia Piña by phone) Emmy Ghosh MD [Primary Care Provider] - 1-2 days Activity/Diet/Wound Care/Special Instructions: Activity and diet as tolerated. Avoid the use of street drugs and alcohol. Take all medications as prescribed. When you are in need of refills on your medications please contact your medical provider and/or outpatient psychiatrist to have this done. Please go to scheduled outpatient appointment for aftercare treatment. If symptoms return or become worse, call the crisis line at and/or go to the nearest emergency room for evaluation. Discharge Disposition: HOME SELF-CARE
== END 2020-09-27 13:49 | disposition home or self-care (01) | DRG 885 ==
LOC: EC 12:14 → 3MHU 19:15 → EEVIPCON 19:15
PROVIDERS: ADMIT Psychiatry & Neurology Psychiatry; ATTEND Psychiatry & Neurology Psychiatry
DX: F29 Unspecified psychosis not due to a substance or known physiological condition (principal); T74.31XA Adult psychological abuse, confirmed, initial encounter; F22 Delusional disorders; Z20.822 Contact with and (suspected) exposure to COVID-19; F41.9 Anxiety disorder, unspecified; F84.0 Autistic disorder; F32.9 Major depressive disorder, single episode, unspecified; F43.10 Post-traumatic stress disorder, unspecified; F17.210 Nicotine dependence, cigarettes, uncomplicated; E78.5 Hyperlipidemia, unspecified; F12.10 Cannabis abuse, uncomplicated; Z71.6 Tobacco abuse counseling; Z86.14 Personal history of Methicillin resistant Staphylococcus aureus infection; Z91.410 Personal history of adult physical and sexual abuse
CPT/HCPCS: 80053; 80061; 80306; 82075; 84443; 85025; 87635; 96372; 99284; 99285